=== PATIENT | male | born 1950 | race Caucasian/White ===

== ENCOUNTER 2017-07-29 05:44 | Inpatient (IN) | payer OTHER ==
--- NOTE | 2017-07-17 12:08 | GHP ---
[f rep st] PREOP HISTORY AND PHYSICAL DATE OF ADMISSION: Patient will be an a.m. admission for surgery at [facility] on July 29, 2017. PROBLEM: Right hip arthritis. HISTORY OF PRESENT ILLNESS: The patient is a 66-year-old man admitted for a right total hip arthroplasty. He has progressive pain in his right hip for the past 4 or 5 months. He is complaining of groin pain and buttock pain. He has been limping. It is painful to cross his legs. He states that the groin pain is exactly like what he felt in the left hip before he had it replaced. He is admitted for a right total hip arthroplasty. PAST MEDICAL HISTORY: I did his left total hip arthroplasty in 2012. He has had an excellent result. Overall, he is in excellent general health. No history of heart disease, stents , DVT, hepatitis, sleep apnea, or bleeding problems. CURRENT MEDICATIONS: None. ALLERGIES: Drug allergies: None. Metal allergy: None. Latex allergy: None. 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 He does not smoke cigarettes and rarely drinks alcohol. He is . FAMILY HISTORY: Positive for cancer and heart disease. PHYSICAL EXAMINATION: GENERAL: He is an alert healthy-appearing man. Height 5 feet 10 inches. Weight 190 pounds. BMI 27.9. EYES: Conjunctivae and sclerae are clear. Pupils are round and reactive. MOUTH: Good oral hygiene. No loose teeth. CHEST: Clear. HEART: Regular rhythm. No murmurs. EXTREMITIES: Pertinent findings limited to his right hip. He has full hip extension and 120 degrees of flexion. External rotation 45 degrees. Internal rotation 20 degrees. Abduction 45 degrees. He has pain at the extremes of motion. IMAGING: Films show a moderate degenerative arthritis of the right hip. He has also had an MRI, which confirms arthritis in the right hip. His left total hip looks excellent. IMPRESSION ON ADMISSION: 1. Right hip degenerative arthritis. He is prepared for a right total hip arthroplasty. 2. Four years status post successful left total hip arthroplasty. PLAN: He will undergo a right total hip arthroplasty. The surgery has been described to him, including the risks, complications, expectations, and recovery time. I have discussed with him the risk of leg length inequality, dislocation, sciatic nerve injury, and infection. I have advised him that with bilateral procedures, there can be mild suep-uw-ehpd differences during the recovery and even with the final result. All of his questions have been answered, and he consents to surgery. /[id number]/MODL MTDD
[2017-07-29] MEDS ORDERED: POVIDONE-IODINE 20 ML in SODIUM CL IRRIG SOLUTION 500 ML IRR ONE ×2 (06:00→11:30)
[2017-07-29] MEDS ORDERED: TRANEXAMIC ACID 1,700 MG in NS 100 ML IV ONE (06:00)
[2017-07-29] MEDS ORDERED: ROPIVACAINE 0.2% 80 MG, EPINEPHrine 0.2 MG, KETOROLAC TROMETHAMINE 30 MG in SYRINGE 0 ML IU ONE (06:00)
[2017-07-29] MEDS ORDERED: GABAPENTIN 300 MG CAP PO ONE (06:04)
[2017-07-29] MEDS ORDERED: FAMOTIDINE 20 MG TAB PO ONE (06:04)
[2017-07-29] MEDS ORDERED: DEXAMETHASONE 4 MG/ML VIAL IVP ONE (06:04)
[2017-07-29] MEDS ORDERED: ACETAMINOPHEN 325 MG TAB PO ONE (06:04)
[2017-07-29] MEDS ORDERED: ceFAZolin 2 GM/SWFI 2 GM/20 ML SYR IVP ONE (06:04)
[2017-07-29] MEDS ORDERED: LIDOCAINE 1% 2 ML INJ ID PRN (06:08)
[2017-07-29] MEDS ORDERED: LR 1,000 ML IV ONE (06:08)
[2017-07-29] MEDS ORDERED: LIDOCAINE 1% 2 ML INJ ONE (06:12)
[2017-07-29] MEDS ORDERED: ceFAZolin 1 GM/5 ML SYR ONE ×2 (06:50→11:41)
--- NOTE | 2017-07-29 06:52 | PDHPUP ---
History & Physical Update H&P update statement: This history and physical update is based on an assessment of the patient which was completed after admission or registration (within 24 hours), but prior to the surgery/procedure. H&P update: H&P reviewed & patient examined, no change in patient's condition since H&P completed
[2017-07-29] MEDS ORDERED: MIDAZOLAM 2 MG/2 ML VIAL IVP ONE ×2 (07:03→11:38)
--- NOTE | 2017-07-29 07:03 | PDANEPAE ---
ANE History of Present Illness right RAHEEM ANE Past Medical History - Cardiovascular History Hx Hypertension: No Hx Arrhythmias: No Hx Chest Pain: No Hx Coronary Artery / Peripheral Vascular Disease: No Hx CHF / Valvular Disease: No Hx Palpitations: No Cardiovascular History Comment: on meds. denies chest pain, palps - Pulmonary History Hx COPD: No Hx Asthma/Reactive Airway Disease: No Hx Recent Upper Respiratory Infection: No Hx Oxygen in Use at Home: No Hx Sleep Apnea: Yes Sleep Apnea Screening Result - Last Documented: Positive - Neurologic History Hx Cerebrovascular Accident: No Hx Seizures: No Hx Dementia: No - Endocrine History Hx Diabetes: No Endocrine History Comment: hypotyhroid- on meds - Renal History Hx Renal Disorders: No - Liver History Hx Hepatic Disorders: No - Neurological & Psychiatric Hx Hx Neurological and Psychiatric Disorders: No - Cancer History Hx Cancer: No - Congenital Disorder History Hx Congenital Disorders: No - GI History Hx Gastrointestinal Disorders: No Gastrointestinal History Comment: INTERMITTENT HEARTBURN WILL USE TUMS - Other Health History Other Health History: LIMITED ROM RT SHLDR. OSTEOARTHRITIS. USES SLEEP MASK LIGHT SLEEPER. DAILY USE OF KNEE HIGH SUPPORT. HOSE - Chronic Pain History Chronic Pain: Yes (RT HIP) - Surgical History Prior Surgeries: RT SHLDR RTC 07/2013. LT TOTAL HIP. SOME LIMITED ROM. LUMBAR LAMINECTOMY. T&A X 2 ANE Review of Systems Review of systems is: negative Review of Systems: - Exercise capacity Exercise capacity: >=4 METS METS (RN): 4 METS ANE Patient History - Allergies Allergies/Adverse Reactions: No Allergies [NKDA] Allergy (Verified 08/31/12 12:46) - Home Medications Home Medications: NK [No Known Home Meds] 07/03/17 [Last Taken Unknown] - NPO status NPO Status: no food or drink >8 hours NPO Since - Liquids (Date): 07/29/17 NPO Since - Liquids (Time): 04:15 NPO Since - Solids (Date): 07/28/17 NPO Since - Solids (Time): 17:00 - Anes Hx Anes Hx: no prior problems - Smoking Hx Smoking Status: Never smoked - Alcohol Use Alcohol Use: Occasionally - Family Anes Hx Family Hx Anesthesia Complications: none ANE Labs/Vital Signs - Vital Signs Vital Signs: reviewed preoperatively; see RN documention for details Blood Pressure: 160/100 Heart Rate: 62 Respiratory Rate: 16 O2 Sat (%): 94 Height: 177.8 cm Weight: 86.183 kg ANE Physical Exam - Airway Neck exam: FROM Mallampati Score: Class 3 Mouth exam: normal dental/mouth exam - Pulmonary Pulmonary: no respiratory distress - Cardiovascular Cardiovascular: regular rate and rhythym - ASA Status ASA Status: II ANE Anesthesia Plan Anesthesia Plan: spinal
[2017-07-29] MEDS ORDERED: PROPOFOL/EMULSION 500 MG/50 ML BOTTLE IV ONE (07:08)
[2017-07-29] MEDS ORDERED: LIDOCAINE 2% 100 MG/5 ML SYR ONE (07:08)
[2017-07-29] MEDS ORDERED: fentaNYL 100 MCG/2 ML INJ ONE ×3 (07:30→12:11)
[2017-07-29] MEDS ORDERED: ONDANSETRON 4 MG/2 ML VIAL ONE (07:45)
[2017-07-29] MEDS ORDERED: DEXAMETHASONE 4 MG/ML VIAL ONE ×2 (07:45)
[2017-07-29] MEDS ORDERED: SUGAMMADEX SODIUM 200 MG/2 ML VIAL IVP ONE ×2 (08:33→13:23)
--- NOTE | 2017-07-29 08:57 | POSTOPPROG ---
Post Op Note Date of Operation: 07/29/17 Surgeon: Fidencio Tamez Deputy United [place] Marshal: Toney Lundberg/Andrea Perez Anesthesiologist: Dr. Gianni Serrano Anesthesia: GET(General Endotracheal) Post-op Diagnosis: Right hip degenerative arthritis Procedure: Right total hip arthroplasty Inf/Abcess present in the surg proc area at time of surgery?: No EBL: 100-500
[2017-07-29] MEDS ORDERED: DIPHENOXYLATE/ATROPINE LOMOTIL 1 TAB PO PRN (09:04)
[2017-07-29] MEDS ORDERED: PROMETHAZINE HCL 25 MG/ML INJ IVP PRN (09:04)
[2017-07-29] MEDS ORDERED: diphenhydrAMINE 25 MG CAP PO PRN (09:04)
[2017-07-29] MEDS ORDERED: ONDANSETRON 4 MG/2 ML VIAL IVP PRN (09:04)
[2017-07-29] MEDS ORDERED: MAGNESIUM HYDROXIDE 30 ML UDCUP PO PRN (09:04)
[2017-07-29] MEDS ORDERED: POLYETHYLENE GLYCOL 3350 17 GM PKT PO PRN (09:04)
[2017-07-29] MEDS ORDERED: BISACODYL 10 MG SUPP PR PRN (09:04)
[2017-07-29] MEDS ORDERED: traMADol 50 MG TAB PO PRN (09:04)
[2017-07-29] MEDS ORDERED: LACTULOSE 20 GM/30 ML UDCUP PO PRN (09:04)
[2017-07-29] MEDS ORDERED: METOCLOPRAMIDE 10 MG/2 ML VIAL IVP PRN (09:04)
[2017-07-29] MEDS ORDERED: ONDANSETRON DISINTEGRATING 4 MG TAB PO PRN (09:04)
[2017-07-29] MEDS ORDERED: NS 500 ML IV PRN (09:04)
[2017-07-29] MEDS ORDERED: KETOROLAC 30 MG/1 ML SDV IVP PRN (09:04)
[2017-07-29] MEDS ORDERED: PROMETHAZINE HCL 25 MG SUPPR PR PRN (09:04)
[2017-07-29] MEDS ORDERED: TEMAZEPAM 15 MG CAP PO PRN (09:04)
[2017-07-29] MEDS ORDERED: oxyCODONE IR 5 MG TAB PO PRN (09:04)
[2017-07-29] MEDS ORDERED: CYCLOBENZAPRINE 10 MG TAB PO PRN (09:04)
[2017-07-29] MEDS ORDERED: NALOXONE HCL 0.4 MG/ML INJ IVP PRN ×2 (09:10→13:27)
[2017-07-29] MEDS ORDERED: OXYCODONE/APAP 5/325 TAB PO PRN ×2 (09:10→13:27)
[2017-07-29] MEDS ORDERED: fentaNYL 100 MCG/2 ML INJ IVP PRN ×2 (09:10→13:27)
[2017-07-29] MEDS ORDERED: HYDROmorphONE/DILAUDID 1 MG/ML INJ IVP PRN ×2 (09:10→13:27)
[2017-07-29] MEDS ORDERED: HYDROCODONE/APAP 5/325 TAB PO PRN (09:10)
[2017-07-29] MEDS ORDERED: ACETAMINOPHEN 500 MG TAB PO PRN (09:10)
[2017-07-29] MEDS ORDERED: ALBUTEROL 3 ML DEYVIAL IH PRN ×2 (09:10→13:27)
--- NOTE | 2017-07-29 09:10 | POSTANESTH ---
Post Anesthetic Evaluation Cardiovascular Status: Normal, Stable Respiratory Status: Normal, Stable Level of Consciousness/Mental Status: Can Participate in Eval Pain Control: Adequate, Prn Tx Ordered Nausea/Vomiting Control: Adequate, Prn Tx Ordered Complications Possibly Related to Anesthesia: None Noted
[2017-07-29] MEDS ORDERED: LR 1,000 ML IV SCH (09:30)
--- NOTE | 2017-07-29 09:59 | GOP ---
[f rep st] OPERATIVE REPORT DATE OF OPERATION: 07/29/2017 SURGEON: Fidencio Tamez MD SENIOR ABAP DEVELOPER: ROLY Camejo CFA ANESTHESIA: Attempted spinal followed by general anesthesia. ANESTHESIOLOGIST: Gianni Serrano MD PREOPERATIVE DIAGNOSIS: Right hip severe degenerative arthritis. POSTOPERATIVE DIAGNOSIS: Right hip severe degenerative arthritis. PROCEDURE PERFORMED: Operation performed 07/29/2017: Right total hip arthroplasty, Oxinium femoral head on a highly cross-linked polyethylene cup liner. FINDINGS: DESCRIPTION OF PROCEDURE: The patient was given 2 g of IV Ancef preoperatively within 60 minutes of surgery. He also received IV tranexamic acid at a dose of 20 mg/kg. He was placed on the operating room table, and Dr. Serrano attempted a spinal anesthetic. This was unsuccessful. He was then plac ed supine and given general anesthesia. A Abrams catheter was not used. He wore a HUGH stocking and S CD on the nonoperative leg. He was rolled to the left lateral decubitus position. The position was secured with the pegboard table attachment. An axillary roll was used, and all pressure points were carefully padded. I was careful to lock his pelvis in a rigid vertical position. His perineum was i solated with plastic adhesive drapes. The right hip and right lower extremity were prepped with Chlo raPrep. They were draped free using sterile sheets, stockinette, and Ioban plastic drapes. The World Health Organization time-out was performed to verify the correct patient identity and the c orrect surgical side and site. The [place] time-out was also performed. I made a 5-inch straight oblique posterolateral hip skin incision. Subcutaneous tissues were sharply divided, and hemostasis was obtained using electrocautery. The fascia clemencia was identified and split along the axis of its fibers. I then curved posteriorly and proximally and split the fascia of the gluteus keon and bluntly split the muscle fibers in line with their orientation. The Charnley jonathan f-retaining retractor was inserted. His sciatic nerve was located and protected throughout the proce dure. The external rotators and the posterior hip capsule were divided as separate layers at the bas e of the femoral neck, tagged, and reflected posteriorly. A smooth 1/8-inch Steinmann pin was insert ed vertically into the ilium, superior to the acetabulum. A 1/8-inch drill bit was inserted vertical ly into the greater trochanter and parallel to the first pin. The distance between the 2 was measure d for leg length reference. His femoral head was dislocated posteriorly. Severe degenerative change s were present on the femoral head. The femoral neck was osteotomized at the appropriate level and i nclination. I was careful to preserve all the posterior capsule and most of the anterior capsule. The remnant of his damaged labrum was excised. I prepared the femur first. This allowed me to farmworkers the amount of natural femoral neck anteversion. This in turn allowed me to later determine the correct amount of cup anteversion. He had approxima tely 10 degrees of natural femoral neck anteversion. The canal was opened laterally with a box chise l. I reamed and broached sequentially up to size 13. I used a size 13 Synergy broach as a trial blanca m. I was careful to lateralize adequately. Appropriate retractors were inserted to expose the acetabulum. The acetabulum was reamed sequentiall y up to 53 mm. I selected a 54 mm Burciaga and Nephew R3 solid-backed hemispherical shell. This was ta pped securely into place in a proper degree of inclination and anteversion. I used the transverse ac etabular ligament and other acetabular bony landmarks to help me properly orient the cup. The fixati on was secure, and I did not think supplemental screws were necessary. I inserted a screw-in metal d ome hole plug. I performed a series of trial reductions to determine length and stability. I concluded that the siz e 13 standard offset stem with the -3 mm neck length with a 36 mm head and a 20-degree lipped liner g ave me the proper combination of appropriate length and good anterior and posterior stability. The 20-degree lipped Burciaga and Nephew R3 highly cross-linked polyethylene liner was inserted and stephane ed securely into place. I chose a Burciaga and Nephew Synergy stem in a size 13 with standard offset. This was inserted press-fit and was very tight. I did 1 final trial reduction and confirmed that the -3 mm neck length with the 36 mm head was the proper combination. The Burciaga and Nephew Oxinium head with an outside diameter of 36 mm and a neck length of -3 mm was tapped securely onto the clean trun nion. The acetabulum was irrigated, cleaned, and the hip was reduced 1 final time. He had excellent anterior and posterior stability and appropriate length. 40 mL of the joint anesthetic cocktail were injected into the capsule, the deep musculature, and the subcutaneous tissues around the skin edges. The joint was thoroughly irrigated 1 final time with a d ilute Betadine solution. The sciatic nerve was reinspected and looked unharmed. The external rotato rs and the posterior hip capsule were repaired in separate layers with #2 FiberWire sutures through d rill holes in the greater trochanter. The fascia clemencia was repaired first with 2 qibvas-cm-rbywl #2 F iberWire sutures, followed by a running #2 barbed Ethicon Stratafix PDO suture. The subcutaneous tis sues were closed with a running 0 barbed Ethicon Stratafix Monoderm suture. The skin was closed with a running 3-0 barbed Ethicon Stratafix Monoderm subcuticular suture. The skin edges were reapproxim ated and sealed with Dermabond glue. The wound was covered with a piece of large Mepilex sterile beth erproof dressing. A long-leg HUGH stocking and SCD were applied to the right lower extremity. He wore a stocking and SC D on the opposite leg during the procedure. An abduction pillow was placed between his knees. He wa s awakened from anesthesia and rolled to the supine position on his [facility]. He was taken to PACU in satisfactory condition. There were no recognized intraoperative complications. The estimated blood loss was about 300 mL. I used a Burciaga and Nephew R3 hemispherical solid-backed acetabular shell with an outside diameter of 54 mm. The liner was a Burciaga and Nephew R3 lipped, highly cross-linked liner with an inside diameter of 36 mm. The femoral component was a press-fit Burciaga and Nephew standard offset Synergy stem in si ze 13. The femoral head was a Burciaga and Nephew Oxinium head with a -3 mm neck length and a 36 mm out side diameter. Toney Lundberg and Andrea Perez acted as surgical assistants. Their assistance was a medical necess ity for safe completion of the procedure. /[id number]/MODL
[2017-07-29] MEDS ORDERED: MIDAZOLAM 2 MG/2 ML VIAL ONE (12:06)
[2017-07-29] MEDS ORDERED: LIDOCAINE 2% 5 ML SDV ONE (12:11)
[2017-07-29] MEDS ORDERED: ROCURONIUM 50 MG/5 ML VIAL ONE (12:11)
[2017-07-29] MEDS ORDERED: PROPOFOL 200 MG/20 ML VIAL ONE (12:11)
[2017-07-29] MEDS ORDERED: ceFAZolin 1 GM VIAL ONE ×2 (12:36)
--- NOTE | 2017-07-29 13:44 | POSTOPPROG ---
Post Op Note Date of Operation: 07/29/17 Surgeon: Fidencio Tamez Terrazzo Mechanic Helper: Mikel Anesthesiologist: Dr. Gianni Serrano Anesthesia: GET(General Endotracheal) Post-op Diagnosis: unstable right total hip arthroplasty. Procedure: Revision of femoral component and acetabular liner. Inf/Abcess present in the surg proc area at time of surgery?: No EBL: 100-500
--- NOTE | 2017-07-29 14:31 | GOP ---
[f rep st] OPERATIVE REPORT DATE OF OPERATION: 07/29/2017 SURGEON: Fidencio Tamez MD DANCE THERAPIST: ROLY Camejo and Andrea Perez CFA ANESTHESIA: General ANESTHESIOLOGIST: Gianni Serrano MD. PREOPERATIVE DIAGNOSIS: Unstable right total hip arthroplasty. POSTOPERATIVE DIAGNOSIS: Unstable right total hip arthroplasty. PROCEDURE PERFORMED: Revision of right total hip arthroplasty with exchange of the femoral component and the acetabular liner. FINDINGS: DESCRIPTION OF PROCEDURE: I had performed this patient's total hip arthroplasty earlier in the day. His x-ray in the recovery room, showed anterior subluxation of the femoral head. I felt this was an unacceptable amount of instability. I returned him to the operating room with a plan to switch him to a high-offset femoral component and probably use a flush acetabular liner. He was given 2 g of IV Ancef preoperatively within 60 minutes of surgery. [facility] and given general anesthesia by Dr. Serrano. A Abrams catheter was not used. He wor e a HUGH stocking and SCD on the nonoperative leg. He was rolled to the left lateral decubitus positi on. The position was secured with the pegboard table attachment. An axillary roll was used, and all pressure points were carefully padded. I was careful to lock his pelvis in a vertical position. Hi s perineum was isolated with plastic adhesive drapes. The right hip and right lower extremity were p repped with ChloraPrep. They were draped free using sterile sheets, stockinette, and Ioban plastic a dhesive drapes. The World Health Organization time-out was performed to verify the correct surgical side and site and the correct patient identity. The [place] time-out was also performed. I reopened his original surgical incision which had been glued with Dermabond. It was about a 5-inch incision. The sutures were removed from the subcutaneous tissues and the subcutaneous layer was ope lux. Suture remnants were removed with a hemostat. The fascia clemencia was identified. I split the sut ures and removed them. The Charnley self-retaining retractor was inserted. The external rotators an d the posterior hip capsule which I had repaired were taken down. The FiberWire sutures were removed . I inserted a smooth 8-inch Steinmann pin vertically into the ilium, superior to the acetabulum to act as a retractor. I then assessed the cause of his instability. With the leg in full extension and then firmly externa lly rotated, the neck of the femoral component was impinging on the lipped liner and levering the fem oral head out anteriorly. The femoral head was gently tapped off the trunnion. The femoral component was then removed with the extractor and a slap hammer without difficulty. I used the extraction tool and removed the lipped liner. I then did a series of trial reductions. I started with a flush acetabular liner. I trialed with a high offset stem and a 0 neck length. This was adding a little bit of length and greater offset. He then had extremely good stability anterior ly and posteriorly. I checked and made sure he was not levering off the posterior aspect of the acet abulum, creating anterior instability. The actual flush liner for a 54 mm cup with a 32 mm inside diameter was then selected and tapped secu rely into place. I chose the Synergy high-offset stem in a size 13. This was tapped securely into p lace and was very tight. I did 1 additional trial reduction with the 36 mm head and a 0 neck length. The stability again was very good, both anteriorly and posteriorly. I stressed the hip in extensio n and external rotation, and make sure it did not dislocate anteriorly. The actual 36 mm Oxinium head with a 0 neck length was tapped securely onto the clean trunnion. The hip was reduced 1 final time. The joint was thoroughly irrigated with a dilute Betadine solution. Osito ricketts external rotators and the posterior hip capsule were repaired in separate layers with #2 FiberWire sutures through drilled holes in the greater trochanter. This provided a strong posterior capsular and external rotator repair. The fascia clemencia was closed first with 2 nrnfrr-xx-pwaeq #2 FiberWire ma tures followed by a running #2 barbed Ethicon Stratafix PDO suture. The subcutaneous tissues were cl osed with a running 0 barbed Ethicon Stratafix Monoderm suture. The skin was closed with a running 3 -0 barbed Ethicon Stratafix Monoderm subcuticular suture. The skin edges were reapproximated and sea led with Dermabond glue. The wound was covered with a large strip of Mepilex waterproof dressing. A long-leg HUGH stocking and SCD were applied to his right lower extremity. He wore a stocking and SC D on the opposite leg during the procedure. An abduction pillow was placed between his knees. He wa s awakened from anesthesia and rolled to the supine position on his [facility]. He was taken to PACU in satisfactory condition. There were no recognized intraoperative complications. I evacuated about 200 cc of old blood from the wound. There was little if any fresh bleeding with th is procedure. I used a flush, highly crosslinked Burciaga and Nephew R3 liner with an inside diameter 36 mm. The femo ral component was a press-fit Burciaga and Nephew high-offset Synergy stem in a size 13. The femoral he ad was a Burciaga and Nephew Oxinium head with a 0 neck length and a 36 mm outside diameter. Toney Lundberg and Andrea Perez acted as surgical assistants. Their assistance was a medical necess ity for safe completion of the procedure. /[id number]/MODL
[2017-07-29] MEDS: ACETAMINOPHEN 325 MG TAB PO SCH ×3 (15:21→23:52)
--- NOTE | 2017-07-29 15:55 | PDANEPAE ---
ANE History of Present Illness see pre-op note from this Am, NO INTERIM CHanges ANE Past Medical History - Cardiovascular History Hx Hypertension: No Hx Arrhythmias: No Hx Chest Pain: No Hx Coronary Artery / Peripheral Vascular Disease: No Hx CHF / Valvular Disease: No Hx Palpitations: No Cardiovascular History Comment: on meds. denies chest pain, palps - Pulmonary History Hx COPD: No Hx Asthma/Reactive Airway Disease: No Hx Recent Upper Respiratory Infection: No Hx Oxygen in Use at Home: No Hx Sleep Apnea: Yes Sleep Apnea Screening Result - Last Documented: Positive - Neurologic History Hx Cerebrovascular Accident: No Hx Seizures: No Hx Dementia: No - Endocrine History Hx Diabetes: No Endocrine History Comment: hypotyhroid- on meds - Renal History Hx Renal Disorders: No - Liver History Hx Hepatic Disorders: No - Neurological & Psychiatric Hx Hx Neurological and Psychiatric Disorders: No - Cancer History Hx Cancer: No - Congenital Disorder History Hx Congenital Disorders: No - GI History Hx Gastrointestinal Disorders: No Gastrointestinal History Comment: INTERMITTENT HEARTBURN WILL USE TUMS - Other Health History Other Health History: LIMITED ROM RT SHLDR. OSTEOARTHRITIS. USES SLEEP MASK LIGHT SLEEPER. DAILY USE OF KNEE HIGH SUPPORT. HOSE - Chronic Pain History Chronic Pain: Yes (RT HIP) - Surgical History Prior Surgeries: RT SHLDR RTC 07/2013. LT TOTAL HIP. SOME LIMITED ROM. LUMBAR LAMINECTOMY. T&A X 2 ANE Review of Systems Review of Systems: - Exercise capacity METS (RN): 4 METS ANE Patient History - Allergies Allergies/Adverse Reactions: No Allergies [NKDA] Allergy (Verified 08/31/12 12:46) - Home Medications Home Medications: NK [No Known Home Meds] 07/03/17 [Last Taken Unknown] - NPO status NPO Since - Liquids (Date): 07/29/17 NPO Since - Liquids (Time): 04:15 NPO Since - Solids (Date): 07/28/17 NPO Since - Solids (Time): 17:00 - Smoking Hx Smoking Status: Never smoked - Alcohol Use Alcohol Use: Occasionally - Family Anes Hx Family Hx Anesthesia Complications: none ANE Labs/Vital Signs - Vital Signs Blood Pressure: 157/90 Heart Rate: 71 Respiratory Rate: 18 O2 Sat (%): 100 Height: 177.8 cm Weight: 86.183 kg ANE Anesthesia Plan Anesthesia Plan: general endotracheal anesthesia
[2017-07-29] MEDS: TRANEXAMIC ACID 650 MG TAB PO SCH ×2 (16:39→23:52)
[2017-07-29] MEDS: ceFAZolin 2 GM/DEXTROSE 100 ML IV SCH ×2 (16:40→23:55)
[2017-07-29] MEDS: ASPIRIN 325 MG TAB PO SCH (20:52)
[2017-07-29] MEDS: FAMOTIDINE 20 MG TAB PO SCH (20:53)
[2017-07-29] MEDS: SENNOSIDES/DOCUSATE SODIUM TAB PO SCH (20:53)
[2017-07-30] MEDS: ACETAMINOPHEN 325 MG TAB PO SCH (05:41)
[2017-07-30 07:44] VITALS: BP 129/71; RESP 16; TEMP 98.5
[2017-07-30] MEDS: ASPIRIN 325 MG TAB PO SCH (07:59)
[2017-07-30] MEDS: TRANEXAMIC ACID 650 MG TAB PO SCH (07:59)
[2017-07-30] MEDS: FAMOTIDINE 20 MG TAB PO SCH (08:00)
[2017-07-30] MEDS: SENNOSIDES/DOCUSATE SODIUM TAB PO SCH (08:00)
[2017-07-30] MEDS ORDERED: FERROUS SULFATE 140 MG TAB.ER PO SCH (09:00)
--- NOTE | 2017-07-30 09:22 | SOAPPROG ---
SOAP Progress Note Assessment/Plan: Assessment: Afebrile. Minimal pain. Awake and alert. He has been walking in the [place]. His dressing is dry. Postop films look excellent. H&H is good. Plan: Continue physical therapy today. Discharged later today. 07/30/17 09:21 Objective: Vital Signs Temp Pulse Resp BP Pulse Ox 36.9 C 88 16 129/71 H 96 07/30/17 07:43 07/30/17 07:43 07/30/17 07:43 07/30/17 07:43 07/30/17 07:43 Laboratory Results 07/30/17 04:13 07/29/17 07/30/17 07/31/17 05:59 05:59 05:59 Intake Total 2765 Output Total 1045 Balance 1720 ICD10 Worksheet Patient Problems: Problems Problem Status Onset Osteoarthritis of right hip Acute Rotator cuff tear, right Acute
--- NOTE | 2017-07-30 10:15 | GDS ---
[f rep st] DISCHARGE SUMMARY ADMISSION DIAGNOSIS: Right hip severe degenerative arthritis. DISCHARGE DIAGNOSIS: Right hip severe degenerative arthritis. OPERATION PERFORMED: 07/29/2017. 1. Right total hip arthroplasty. 2. Revision of right total hip arthroplasty. POSTOP COMPLICATIONS: Anterior dislocation of his right total hip arthroplasty in the PACU. CONDITION ON DISCHARGE: Improved. DESCRIPTION OF HOSPITAL COURSE: The patient was admitted to the hospital on the morning of surgery. His admission CBC was normal. The same day under general anesthesia, he underwent a right total hip arthroplasty. In the PACU, he sustained an anterior dislocation of the hip. I took him back to the operating room and exchanged his components for a high offset stem and a non lipped acetabular liner . Postoperatively he was treated with multimodal DVT prophylaxis, including aspirin. On the first p ostoperative day, his hemoglobin and hematocrit were 14.0 and 39.8. He was seen by Physical Therapy and made excellent progress with ambulation and stairs. By the time of discharge, he was afebrile, h is wound was dry, and he was independent walking. DISPOSITION: The patient is discharged to his home. He will not require any outpatient physical the rapy. He may progress to full weightbearing on the right as tolerated. Use an abduction pillow in b ed for 3 weeks. Continue HUGH stockings for 1 week. Continue aspirin 325 mg p.o. daily for 21 days. He has prescriptions for oxycodone and tramadol for pain control. I will see the patient back in [facility] office on 08/18/2017. If there is any problems, he is to call me at the office. /[id number]/MODL
--- NOTE | 2017-07-30 11:45 | ASDISCHSUM ---
Discharge Information Plan Status:Home with No Needs Medically Cleared to Leave: Discharge Date:07/30/2017 11:35 AM CM D/C Disposition:Home, Routine, Self-Care ADT D/C Disposition:Home, Routine, Self-Care Projected Discharge Date:07/30/2017 11:35 AM Transportation at D/C: Discharge Delay Reason: Follow-Up Date:07/30/2017 11:35 AM Discharge Slot: Final Diagnosis: Placement Information Patient Contact Information Contact Name:ROSEANNE Relationship: Address:[address] [place] [address] City:[place] Alternate Phone: [facility]/Zip Code:[place] [address] Email: Financial Information Financial Class: Primary Plan Desc:MEDICARE INPATIENT Primary Plan Number:[id number] Secondary Plan Desc:[facility] Secondary Plan Number:[id number] Assessment Information CM Supervisor Irrigation Assessment CJR Did you go to joint Answers: No (why?) Notes: 2nd surgery class? CM Note CM Note Notes: Chris is planning to discharge home with the support of his . He is 66 years-old and walks 5 miles a day. He also has a stationary bike that he rides for 3 hours/day! This will be Kens second surgery, so he is well prepared. Chris scored an 11 on the Risk Assessment and Prediction Tool, thus meaning his discharge destination should be directly home. Date Signed: 07/16/2017 12:34 PM Electronically Signed By:Flor Schwarz [facility] CM Progress Note CM Note CM Note Notes: Pt medically stable for d/c, no CM d/c needs identified. Date Signed: 07/30/2017 11:44 AM Electronically Signed By:PREMA Chavez Intervention Information
[2017-07-30 13:30] VITALS: PULSE 73; O2SAT 94
== END 2017-07-30 11:35 | disposition home or self-care (01) | DRG 467 ==
LOC: F3N 05:44
PROVIDERS: ADMIT Orthopaedic Surgery; ATTEND Orthopaedic Surgery
PROC: 0SP909Z Removal of Liner from Right Hip Joint, Open Approach (ICD-10-PCS; 2017-07-29)
PROC: 0SRR0J9 Replacement of Right Hip Joint, Femoral Surface with Synthetic Substitute, Cemented, Open Approach (ICD-10-PCS; 2017-07-29)
PROC: 0SPR0JZ Removal of Synthetic Substitute from Right Hip Joint, Femoral Surface, Open Approach (ICD-10-PCS; 2017-07-29)
PROC: 0SUA09Z Supplement Right Hip Joint, Acetabular Surface with Liner, Open Approach (ICD-10-PCS; 2017-07-29)
PROC: 0SR902Z Replacement of Right Hip Joint with Metal on Polyethylene Synthetic Substitute, Open Approach (ICD-10-PCS; principal; 2017-07-29 07:15)
DX: M16.11 Unilateral primary osteoarthritis, right hip (principal); T84.020A Dislocation of internal right hip prosthesis, initial encounter; Z96.642 Presence of left artificial hip joint
CPT/HCPCS: 97110-GP; 97116-GP; 97161-GP; 97165-GO; 97530-GP; G8978-GP-CJ; G8979-GP-CI; G8987-GO-CI; G8988-GO-CI; G8989-GO-CI; J0171; J0690; J1100; J1885; J2001; J2250; J2405; J2704; J2795; J3010